=== PATIENT | female | born 1960 ===

== ENCOUNTER 2025-04-18 06:25 | Day surgery (SDC) | payer OTHER, SELFPAY ==
[2025-04-18] VITALS (7 sets, daily range): BP systolic 114–126; BP diastolic 68–76; BMI 18.6
[2025-04-18] MEDS: CELEBREX 200 MG PO (11:44)
[2025-04-18] MEDS: TYLENOL 1000 MG PO (11:44)
[2025-04-18] MEDS: NORMOSOL-R/PLASMALYTE-A 1000 IV (12:01)
[2025-04-18] MEDS: ROXICODONE 5 MG PO (15:04)
== END 2025-04-18 15:25 | disposition home or self-care (01) ==
LOC: SDS 06:25
PROVIDERS: ATTENDING PHYSICIAN Student in an Organized Health Care Education/Training Program; FAMILY PHYSICIAN Internal Medicine
DX: M20.22 Hallux rigidus, left foot (principal)
CPT/HCPCS: 28750; C1713